=== PATIENT | female | born 1985 | race American Indian/Alaskan Native ===

== ENCOUNTER 2019-05-09 09:02 | Emergency (ER) | payer SELFPAY ==
[2019-05-09] MEDS ORDERED: ZOFRAN IV ONE (10:27)
[2019-05-09] MEDS ORDERED: DILAUDID IV ONE (10:27)
[2019-05-09] MEDS ORDERED: NACL 0.9% 1000 ML 1,000 ML IV ONE (10:30)
[2019-05-09 10:49] LABS: Basophils # (Auto) 0.1 K/mm3 (0.0-0.1); Basophils % (Auto) 1.3 % (0.0-1.8); Eosinophils # (Auto) 0.1 K/mm3 (0.0-0.4); Eosinophils % (Auto) 2.3 % (0.0-4.3); Hemoglobin 10.9 gm/dl (10.1-14.3); Lymphocytes # (Auto) 2.1 K/mm3 (1.2-5.4); Lymphocytes % (Auto) 32.7 % (13.4-35.0); Mean Corpuscular HGB Conc 31 % (30-34); Mean Corpuscular Volume 71 fl (79-97); Monocytes # (Auto) 0.5 K/mm3 (0.0-0.8); Monocytes % (Auto) 7.3 % (0.0-7.3); Platelet Count 345 K/mm3 (140-440); Red Blood Count 4.96 M/mm3 (3.65-5.03); Red Cell Distribution Width 19.6 % (13.2-15.2)
[2019-05-09 11:07] LABS: Bilirubin,Urine NEG (Negative); Blood,Urine NEG (Negative); Color,Urine Yellow (Yellow); Mucus,Urine 3+ /HPF; Urobilinogen,Urine < 2.0 mg/dL (<2.0)
[2019-05-09 11:10] LABS: HCG Qualitative,Urine Negative (Negative)
[2019-05-09 11:12] LABS: Alanine Aminotransferase 18 units/L (7-56); Albumin 4.4 g/dL (3.9-5); BUN/Creatinine Ratio 20; Blood Urea Nitrogen 8 mg/dL (7-17); Calcium 9.2 mg/dL (8.4-10.2); Hemolysis Index 1
--- NOTE | 2019-05-09 11:20 | XRay Report ---
CHEST 1 VIEW 05/09/2019 10:59 AM INDICATION / CLINICAL INFORMATION: Weakness. COMPARISON: None available. FINDINGS: SUPPORT DEVICES: None. HEART / MEDIASTINUM: No significant abnormality. LUNGS / PLEURA: No significant pulmonary or pleural abnormality. No pneumothorax. ADDITIONAL FINDINGS: No significant additional findings. IMPRESSION: 1. No acute findings. Signer Name: Stella Guevara MD Signed: 05/09/2019 11:15 AM Workstation Name: [id number]
--- NOTE | 2019-05-09 11:44 | Emergency Department Report ---
- General Chief complaint: Pain General Stated complaint: LEFT SIDE BODY PAIN/NUMB Time Seen by Provider: 05/09/19 10:13 Source: patient Mode of arrival: Ambulatory Limitations: No Limitations - History of Present Illness Initial comments: Patient complained of left-sided weakness which has been ongoing for a week but got worse yesterday morning. She also complained of headache and chest pain. Patient has a history of multiple sclerosis and she has been out of her medication (Tecfidera) since September 2018. Patient said she lost her job and cannot afford her medications and she has not seen her neurologist since last year. MD Complaint: focal weakness -: Gradual, week(s) (One week) Location: LUE, LLE, L face Severity: moderate Severity scale (0 -10): 8 Quality: numbness, dull Consistency: constant Improves with: none Worsens with: none Context: other (Non compliant with medication.) Associated Symptoms: chest pain, headaches - Related Data Allergies Allergy/AdvReac Type Severity Reaction Status Date / Time No Known Allergies Allergy Unverified 05/09/19 10:49 ED Review of Systems ROS: Stated complaint: LEFT SIDE BODY PAIN/NUMB Other details as noted in HPI Comment: All other systems reviewed and negative Constitutional: denies: chills, fever Eyes: denies: eye pain, eye discharge, vision change ENT: denies: ear pain, throat pain Respiratory: denies: cough, shortness of breath, wheezing Cardiovascular: denies: chest pain, palpitations Endocrine: no symptoms reported Gastrointestinal: denies: abdominal pain, nausea, diarrhea Genitourinary: denies: urgency, dysuria, discharge Musculoskeletal: denies: back pain, joint swelling, arthralgia Skin: denies: rash, lesions Neurological: headache, weakness (Left sided weakness.), numbness (Left sided.), paresthesias Psychiatric: denies: anxiety, depression Hematological/Lymphatic: denies: easy bleeding, easy bruising ED Past Medical Hx - Social History Smoking Status: Never Smoker Substance Use Type: None ED Physical Exam - General Limitations: No Limitations General appearance: alert, in no apparent distress, obese - Head Head exam: Present: atraumatic, normocephalic - Eye Eye exam: Present: normal appearance, PERRL, EOMI Pupils: Present: normal accommodation - ENT ENT exam: Present: normal exam, normal orophraynx, mucous membranes moist - Neck Neck exam: Present: normal inspection, full ROM. Absent: tenderness, meningism us - Respiratory Respiratory exam: Present: normal lung sounds bilaterally. Absent: respiratory distress, wheezes, rales, rhonchi - Cardiovascular Cardiovascular Exam: Present: regular rate, normal rhythm, normal heart sounds. Absent: systolic murmur, diastolic murmur, rubs, gallop - GI/Abdominal GI/Abdominal exam: Present: soft, normal bowel sounds. Absent: distended, tenderness, guarding, rebound - Extremities Exam Extremities exam: Present: normal inspection, full ROM, normal capillary refill. Absent: tenderness - Back Exam Back exam: Present: normal inspection, full ROM - Neurological Exam Neurological exam: Present: alert, oriented X3, CN II-XII intact - Psychiatric Psychiatric exam: Present: normal affect, normal mood - Skin Skin exam: Present: warm, dry, intact, normal color. Absent: rash - Assessment Assessment Interval: Baseline - Level of Consciousness 1a. Level of Consciousness: alert/keenly responsive - LOC Questions 1b. LOC Questions: answers both correctly - LOC Command 1c. LOC Commands: performs tasks correctly - Best Gaze 2. Best Gaze: normal - Visual 3. Visual: no visual loss - Facial Palsy 4. Facial Palsy: normal symmetrical movement - Motor Arm 5a. Motor Arm Left: no drift 5b. Motor Arm Right: no drift - Motor Leg 6a. Motor Leg Left: no drift 6b. Motor Leg Right: no drift - Limb Ataxia 7. Limb Ataxia: absent - Sensory 8. Sensory: mild/moderate sensory loss - Best Language 9. Best Language: no aphasia - Dysarthria 10. Dysarthria: normal - Extinction and Inattention 11. Extinction/Inattention: no abnormality - Scoring Total Score: 1 Stroke Severity: Minor Stroke ED Course Vital Signs 05/09/19 09:10 Temperature 98.1 F Pulse Rate 79 Respiratory 18 Rate Blood Pressure 121/79 O2 Sat by Pulse 98 Oximetry - Consultations Consultation #1: 05/09/19 12:45 I consulted the Teleneurologist community support professional Dr Cheryl López. She recommend starting patient on Solumedrol 1000mg IV daily and admission for MRI of Brain and Cervical Spine with and without contrast tomorrow morning. Consultation #2: 05/09/19 12:47 Patient will be admitted by the hospitalist Dr Miles. ED Medical Decision Making - Lab Data Result diagrams: 05/09/19 10:36 05/09/19 10:36 Lab Results 05/09/19 05/09/19 05/09/19 Range/Units 01:33 10:36 10:36 WBC 6.5 (4.5-11.0) K/mm3 RBC 4.96 (3.65-5.03) M/mm3 Hgb 10.9 (10.1-14.3) gm/dl Hct 35.0 (30.3-42.9) % MCV 71 L (79-97) fl MCH 22 L (28-32) pg MCHC 31 (30-34) % RDW 19.6 H (13.2-15.2) % Plt Count 345 (140-440) K/mm3 Lymph % (Auto) 32.7 (13.4-35.0) % [place] % (Auto) 7.3 (0.0-7.3) % Eos % (Auto) 2.3 (0.0-4.3) % Baso % (Auto) 1.3 (0.0-1.8) % Lymph # 2.1 (1.2-5.4) K/mm3 [place] # 0.5 (0.0-0.8) K/mm3 Eos # 0.1 (0.0-0.4) K/mm3 Baso # 0.1 (0.0-0.1) K/mm3 Seg Neutrophils % 56.4 (40.0-70.0) % Seg Neutrophils # 3.6 (1.8-7.7) K/mm3 Sodium 140 (137-145) mmol/L Potassium 3.6 (3.6-5.0) mmol/L Chloride 102.7 (98-107) mmol/L Carbon Dioxide 25 (22-30) mmol/L Anion Gap 16 mmol/L BUN 8 (7-17) mg/dL Creatinine 0.4 L (0.7-1.2) mg/dL Estimated GFR > 60 ml/min BUN/Creatinine Ratio 20 % Glucose 97 (65-100) mg/dL Calcium 9.2 (8.4-10.2) mg/dL Total Bilirubin 0.20 (0.1-1.2) mg/dL AST 13 (5-40) units/L ALT 18 (7-56) units/L Alkaline Phosphatase 108 (35-129) units/L Total Protein 7.5 (6.3-8.2) g/dL Albumin 4.4 (3.9-5) g/dL Albumin/Globulin Ratio 1.4 % TSH (0.270-4.200) mlU/mL Urine Color Yellow (Yellow) Urine Turbidity Cloudy (Clear) Urine pH 5.0 (5.0-7.0) Ur Specific [place] 1.027 (1.003-1.030) Urine Protein 30 mg/dl (Negative) mg/dL Urine Glucose (UA) Neg (Negative) mg/dL Urine Ketones Neg (Negative) mg/dL Urine Blood Neg (Negative) Urine Nitrite Neg (Negative) Urine Bilirubin Neg (Negative) Urine Urobilinogen < 2.0 (<2.0) mg/dL Ur Leukocyte Esterase Tr (Negative) Urine WBC (Auto) 5.0 (0.0-6.0) /HPF Urine RBC (Auto) 7.0 (0.0-6.0) /HPF U Epithel Cells (Auto) 11.0 (0-13.0) /HPF Urine Mucus 3+ /HPF Urine HCG, Qual Negative (Negative) 05/09/19 Range/Units 10:36 WBC (4.5-11.0) K/mm3 RBC (3.65-5.03) M/mm3 Hgb (10.1-14.3) gm/dl Hct (30.3-42.9) % MCV (79-97) fl MCH (28-32) pg MCHC (30-34) % RDW (13.2-15.2) % Plt Count (140-440) K/mm3 Lymph % (Auto) (13.4-35.0) % [place] % (Auto) (0.0-7.3) % Eos % (Auto) (0.0-4.3) % Baso % (Auto) (0.0-1.8) % Lymph # (1.2-5.4) K/mm3 [place] # (0.0-0.8) K/mm3 Eos # (0.0-0.4) K/mm3 Baso # (0.0-0.1) K/mm3 Seg Neutrophils % (40.0-70.0) % Seg Neutrophils # (1.8-7.7) K/mm3 Sodium (137-145) mmol/L Potassium (3.6-5.0) mmol/L Chloride (98-107) mmol/L Carbon Dioxide (22-30) mmol/L Anion Gap mmol/L BUN (7-17) mg/dL Creatinine (0.7-1.2) mg/dL Estimated GFR ml/min BUN/Creatinine Ratio % Glucose (65-100) mg/dL Calcium (8.4-10.2) mg/dL Total Bilirubin (0.1-1.2) mg/dL AST (5-40) units/L ALT (7-56) units/L Alkaline Phosphatase (35-129) units/L Total Protein (6.3-8.2) g/dL Albumin (3.9-5) g/dL Albumin/Globulin Ratio % TSH 0.956 (0.270-4.200) mlU/mL Urine Color (Yellow) Urine Turbidity (Clear) Urine pH (5.0-7.0) Ur Specific [place] (1.003-1.030) Urine Protein (Negative) mg/dL Urine Glucose (UA) (Negative) mg/dL Urine Ketones (Negative) mg/dL Urine Blood (Negative) Urine Nitrite (Negative) Urine Bilirubin (Negative) Urine Urobilinogen (<2.0) mg/dL Ur Leukocyte Esterase (Negative) Urine WBC (Auto) (0.0-6.0) /HPF Urine RBC (Auto) (0.0-6.0) /HPF U Epithel Cells (Auto) (0-13.0) /HPF Urine Mucus /HPF Urine HCG, Qual (Negative) - EKG Data -: EKG Interpreted by Mo EKG shows normal: sinus rhythm Rate: normal - EKG Data When compared to previous EKG there are: previous EKG unavailable Interpretation: no acute changes 05/09/19 11:52 No STEMI. - Radiology Data Radiology results: report reviewed Chest x-ray is unremarkable. CT Head without contrast is negative. - Medical Decision Making Patient has no outpaient follow up because she has no medical insurance. Teleneurologist recommend admission for MRI tomorrow morning and IV steroids. Will admit to hospitalist who will order the MRI tomorrow morning. Critical care attestation.: If time is entered above; I have spent that time in minutes in the direct care of this critically ill patient, excluding procedure time. ED Disposition Clinical Impression: Weakness of left side of body, Weakness on left side of face, Personal history of multiple sclerosis Disposition: OP ADMIT IP TO THIS HOSP Is pt being admited?: Yes Does the pt Need Aspirin: No Condition: Stable Referrals: JATIN CALABRESE MD [Primary Care Provider] - 3-5 Days
--- NOTE | 2019-05-09 11:56 | Cat Scan Report ---
CT BRAIN: 05/09/2019 INDICATION / CLINICAL INFORMATION: Left-sided weakness. COMPARISON: None available. FINDINGS: BRAIN/INTRACRANIAL STRUCTURES: Unenhanced CT images of the brain demonstrate no evidence of acute int racranial abnormality. Ventricles and sulci are normal in size and shape. There is no evidence of hemorrhage or mass. There are no abnormal extra-axial fluid collections. EXTRACRANIAL STRUCTURES: Unremarkable. IMPRESSION: Negative unenhanced CT of the brain. All CT scans at this location are performed using dose reduction to ALARA by means of automated expos ure control. Signer Name: Cedric Pak MD Signed: 05/09/2019 11:51 AM Workstation Name: [id number]
[2019-05-09 12:47] LABS: INR 1.03 (0.87-1.13); Partial Thromboplastin Time 30.9 Sec. (24.2-36.6)
[2019-05-09] MEDS ORDERED: SOLU-Medrol 1,000 MG in NACL 0.9% 250ML 250 ML IV ONE (13:40)
--- NOTE | 2019-05-09 14:36 | Event Note ---
Date: 05/09/19 33 YO Female with MS presents to ED for evaluation of chronic weakness. Pt states that she ran out of her medication 1 month ago due to lack of insurance and seeks medical assistance. Pt seen and evaluated in ED and found to have mild weakness to LUE. 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 Pt treated with IV steroids and supportive care. Pt counseled regarding medication compliance. Pt medically optimized, and subsequently discharged home and instructed to F/u with Neurology in AM for medication reconciliation.
[2019-05-09 17:49] VITALS: BP 115/82
== END 2019-05-09 17:48 | disposition admitted as inpatient to this hospital (09) ==
LOC: ED 09:02
DX: R53.1 Weakness (principal); G35 Multiple sclerosis
CPT/HCPCS: 36415; 70450; 71045; 80053; 81001; 81025; 82550; 83735; 84443; 84484; 85025; 85610; 85730; 93005; 93010; 96361; 96365; 96375; 99285; J1170; J2405; J2930; J7030; J7050

== ENCOUNTER 2019-11-10 23:10 | Emergency (ER) | payer SELFPAY ==
[2019-11-10 23:20] VITALS: BP 113/75
[2019-11-11] MEDS: dexAMETHasone 20 MG/5 ML VIAL IM ONE (01:35)
[2019-11-11] MEDS: KETOROLAC 60 MG/2 ML INJ IM ONE (01:35)
--- NOTE | 2019-11-11 01:58 | Emergency Department Report ---
ED Back Pain/Injury HPI - General Chief Complaint: Back Pain/Injury Stated Complaint: SEVERE BACK CARLIN Time Seen by Provider: 11/11/19 00:19 Source: patient Limitations: No Limitations - History of Present Illness Initial Comments: Patient is a 34-year-old female presents emergency room with complaints of middle back pain that began this morning. She states the pain is worse with movements or coughing or laughing. She states that she took Tylenol without any relief. She denies any fall, injury, numbness, weakness, bowel or bladder incontinence, saddle numbness, fever, urinary symptoms. She has a past medical history of MS and asthma. She denies any allergies to medications. - Related Data Previous Rx's Medication Instructions Recorded Last Taken Type Dimethyl Fumarate [Tecfidera] 240 mg PO BID #60 capsule. 05/09/19 Unknown Rx Prednisone [predniSONE 10 mg 10 mg PO .TAPER #1 tab.ds.pk 05/09/19 Unknown Rx (6-Day Pack, 21 Tabs)] Cyclobenzaprine [Flexeril] 10 mg PO QHS PRN #10 tablet 11/11/19 Unknown Rx Naproxen [EC-Naprosyn] 500 mg PO BID PRN #14 tablet. 11/11/19 Unknown Rx Allergies Allergy/AdvReac Type Severity Reaction Status Date / Time No Known Allergies Allergy Unverified 05/09/19 10:49 ED Review of Systems ROS: Stated complaint: SEVERE BACK CARLIN Other details as noted in HPI Comment: All other systems reviewed and negative ED Past Medical Hx - Past Medical History Previous Medical History?: Yes Hx Asthma: Yes Additional medical history: MS - Surgical History Past Surgical History?: No - Social History Smoking Status: Never Smoker Substance Use Type: None - Medications Home Medications: Home Medications Medication Instructions Recorded Confirmed Last Taken Type Dimethyl Fumarate [Tecfidera] 240 mg PO BID #60 capsule. 05/09/19 Unknown Rx Prednisone [predniSONE 10 mg 10 mg PO .TAPER #1 tab.ds.pk 05/09/19 Unknown Rx (6-Day Pack, 21 Tabs)] Cyclobenzaprine [Flexeril] 10 mg PO QHS PRN #10 tablet 11/11/19 Unknown Rx Naproxen [EC-Naprosyn] 500 mg PO BID PRN #14 tablet. 11/11/19 Unknown Rx ED Physical Exam - General Limitations: No Limitations General appearance: alert, in no apparent distress - Head Head exam: Present: atraumatic, normocephalic - Eye Eye exam: Present: normal appearance - ENT ENT exam: Present: mucous membranes moist - Neck Neck exam: Present: normal inspection, full ROM. Absent: tenderness - Respiratory Respiratory exam: Present: normal lung sounds bilaterally. Absent: respiratory distress, wheezes, rales, rhonchi, stridor, chest wall tenderness, accessory muscle use, decreased breath sounds, prolonged expiratory - Cardiovascular Cardiovascular Exam: Present: regular rate, normal rhythm, normal heart sounds. Absent: systolic murmur, diastolic murmur, rubs, gallop - Back Exam Back exam: Present: normal inspection, full ROM, paraspinal tenderness (bilateral paraspinal T-spine muscular TTP, no midline T-spine or L-spine tenderness to palpation, no step offs, no deformities). Absent: vertebral tenderness - Neurological Exam Neurological exam: Present: alert, oriented X3 - Psychiatric Psychiatric exam: Present: normal affect, normal mood - Skin Skin exam: Present: warm, dry, intact ED Course Vital Signs 11/10/19 11/11/19 23:18 01:31 Temperature 98.3 F 97.7 F Pulse Rate 105 H 85 Respiratory 20 18 Rate Blood Pressure 113/75 O2 Sat by Pulse 93 98 Oximetry ED Medical Decision Making - Lab Data Vital Signs 11/10/19 11/11/19 23:18 01:31 Temperature 98.3 F 97.7 F Pulse Rate 105 H 85 Respiratory 20 18 Rate Blood Pressure 113/75 O2 Sat by Pulse 93 98 Oximetry - Medical Decision Making Patient is a 34-year-old female presents emergency room with complaints of m iddle back pain that began this morning. She states the pain is worse with movements or coughing or laughing. She states that she took Tylenol without any relief. She denies any fall, injury, numbness, weakness, bowel or bladder incontinence, saddle numbness, fever, urinary symptoms. She has a past medical history of MS and asthma. She denies any allergies to medications. initial vitals from triage appear to have possibly been inaccurate from capturing, on repeat of vitals her vitals are completely normal. on exam: bilateral paraspinal T-spine muscular TTP, no midline T-spine or L-spine tenderness to palpation, no step offs, no deformities. Examination consistent with muscle strain. Patient given Toradol and dexamethasone injection and patient symptom significantly improved. Patient does not have any red flag warning signs of back pain. She has no midline tenderness, no trauma, no neuro deficits, no need for emergent imaging at this time. pt given prescription for flexeril and naproxen. advisd pt to please take medication as prescribed. Do not drive or operate heavy machinery while taking muscle relaxer. May use ice pack, heating pad, rest, Epsom salt bath. Follow-up with a primary care doctor in the next 2 to 3 days. Follow-up with orthopedic doctor. Return to the emergency room for any new or worsening symptoms. - Differential Diagnosis strain, sprain, fx, dislocation, DDD, DJD, sciatica, bulging disc Critical care attestation.: If time is entered above; I have spent that time in minutes in the direct care of this critically ill patient, excluding procedure time. ED Disposition Clinical Impression: Thoracic myofascial strain Qualifiers: Encounter type: initial encounter Qualified Code(s): S29.019A - Strain of muscle and tendon of unspecified wall of thorax, initial encounter Disposition: - TO HOME OR SELFCARE Is pt being admited?: No Does the pt Need Aspirin: No Condition: Stable Instructions: Muscle Strain (ED) Additional Instructions: Please take medication as prescribed. Do not drive or operate heavy machinery while taking muscle relaxer. May use ice pack, heating pad, rest, Epsom salt bath. Follow-up with a primary care doctor in the next 2 to 3 days. Follow-up with orthopedic doctor. Return to the emergency room for any new or worsening symptoms. Prescriptions: Cyclobenzaprine [Flexeril] 10 mg PO QHS PRN #10 tablet PRN Reason: Muscle Spasm Naproxen [EC-Naprosyn] 500 mg PO BID PRN #14 tablet. PRN Reason: pain Referrals: VINICIO ROSE MD [Staff Physician] - 2-3 Days [facility] [Outside] - 2-[address] [facility] [Outside] - 2-3 Days AXEL BERNAL MD [Staff Physician] - 2-3 Days [facility] [Provider Group] - 2-3 Days Time of Disposition: 01:57 Print Language: GERMAN
== END 2019-11-11 02:28 | disposition home or self-care (01) ==
LOC: ED 23:10
DX: S29.012A Strain of muscle and tendon of back wall of thorax, initial encounter (principal); J45.909 Unspecified asthma, uncomplicated; Z79.899 Other long term (current) drug therapy; X58.XXXA Exposure to other specified factors, initial encounter; Y93.89 Activity, other specified; Y92.89 Other specified places as the place of occurrence of the external cause; Y99.8 Other external cause status
CPT/HCPCS: 96372; 99282; J1885